=== PATIENT | female | born 1990 | race American Indian/Alaskan Native ===

== ENCOUNTER 2017-10-06 13:53 | Emergency (ER) | payer SELFPAY ==
[2017-10-06 14:31] LABS: Basophils % (Auto) 0.5 % (0.0-1.8); Eosinophils % (Auto) 0.6 % (0.0-4.3); Hematocrit 38.3 % (30.3-42.9); Hemoglobin 12.1 gm/dl (10.1-14.3); Lymphocytes # (Auto) 1.3 K/mm3 (1.2-5.4); Lymphocytes % (Auto) 22.5 % (13.4-35.0); Mean Corpuscular HGB Conc 32 % (30-34); Mean Corpuscular Volume 75 fl (79-97); Monocytes # (Auto) 0.3 K/mm3 (0.0-0.8); Monocytes % (Auto) 5.1 % (0.0-7.3); Platelet Count 233 K/mm3 (140-440); Red Blood Count 5.07 M/mm3 (3.65-5.03)
--- NOTE | 2017-10-06 14:31 | Emergency Department Report ---
Blank Doc - Documentation Documentation: Patient is a 27-year-old female past medical history of pancreatitis was coming with 3 days of upper abdominal pain nausea vomiting. Patient states is consistent with her pancreatitis. Patient is very tender in epigastric region, vomited multiple times here in the emergency departments tachycardic. Patient be moved to the main for further care.
[2017-10-06] MEDS ORDERED: ZOFRAN IV ONE (14:32)
[2017-10-06] MEDS ORDERED: NACL 0.9% 1000 ML 1,000 ML IV ONE (14:32)
[2017-10-06] MEDS ORDERED: MORPHINE IV ONE (14:32)
[2017-10-06] MEDS ORDERED: TORADOL IV ONE (14:32)
[2017-10-06 14:34] LABS: Mean Corpuscular Hemoglobin 24 pg (28-32); Red Cell Distribution Width 22.3 % (13.2-15.2)
[2017-10-06 14:39] LABS: Bacteria,Urine 1+ /HPF (Negative); Bilirubin,Urine NEG (Negative); Blood,Urine NEG (Negative); Color,Urine Yellow (Yellow); Mucus,Urine 1+ /HPF; Urobilinogen,Urine < 2.0 mg/dL (<2.0)
[2017-10-06 14:46] LABS: Alanine Aminotransferase 26 units/L (7-56); Albumin 4.3 g/dL (3.9-5); BUN/Creatinine Ratio 8; Blood Urea Nitrogen 6 mg/dL (7-17); Calcium 9.9 mg/dL (8.4-10.2); Hemolysis Index 0
[2017-10-06 15:58] LABS: HCG Qualitative,Urine Negative (Negative)
[2017-10-06] MEDS ORDERED: SUBLIMAZE IV ONE (16:33)
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
--- NOTE | 2017-10-06 19:08 | Cat Scan Report ---
FINAL REPORT EXAM: CT ABDOMEN PELVIS W CON HISTORY: hx pancreatitis with surg of pseudocyst TECHNIQUE: CT of the abdomen and pelvis was performed after the administration of intravenous contrast. Subsequently, CT of the abdomen and pelvis was performed in the delayed phase. Reconstructions were included in the coronal and sagittal planes. PRIORS: None. FINDINGS: Lower thorax: The lung bases are clear. The visualized portions of the heart are normal. Liver: The liver is normal in attenuation. There is mild intrahepatic biliary ductal dilation. No focal hepatic lesions. Gallbladder/ biliary system: No cholelithiasis. The common bile duct is at the upper limits of normal in size measuring 6 millimeters. Spleen: No splenic lesions are seen. Pancreas: Pancreatic and peripancreatic inflammation is seen. There is mild dilation of the pancreatic duct measuring up to 4 millimeters. A cyst is seen in the region of the pancreatic head measuring 1.3 centimeters. Kidneys: No renal masses, cysts or hydronephrosis. No ureteral filling defects. Adrenal glands: No adrenal masses. 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 Lymph nodes: No enlarged lymph nodes are seen in the abdomen or pelvis. Bowel, mesentery, peritoneum: No bowel obstruction. No free fluid or free air. The appendix is normal. No colonic diverticulosis. No bowel wall thickening. Urinary bladder: No filling defects are seen. Pelvis: Probable calcifying right uterine fibroid is seen. The ovaries appear unremarkable. There is a small amount of free fluid in the pelvis. Abdominal wall: No abdominal wall hernia or other subcutaneous findings. Bones: No acute or chronic osseous finding. IMPRESSION: 1. Findings of pancreatitis. Cystic lesion in the pancreatic head measuring 1.3 centimeters concerning for pseudocyst. 2. Dilation of the pancreatic duct and intrahepatic biliary ducts with borderline caliber common bile duct. Could consider further evaluation with MRCP. 3. 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 4. Probable calcifying right uterine fibroid. 5. Small volume of free fluid in the pelvis.
[2017-10-06] MEDS ORDERED: PERCOCET 5/325 PO ONE (19:30)
[2017-10-06 19:43] VITALS: BP 115/88
== END 2017-10-06 19:45 | disposition home or self-care (01) ==
LOC: ED 13:53
DX: K85.90 Acute pancreatitis without necrosis or infection, unspecified (principal); F17.200 Nicotine dependence, unspecified, uncomplicated
CPT/HCPCS: 36415; 74177; 80053; 81001; 81025; 83690; 85025; 96361; 96374; 96375; 99284; J1885; J2270; J2405; J3010; J7030; Q9967

== ENCOUNTER 2018-02-28 13:21 | Emergency (ER) | payer SELFPAY ==
[2018-02-28] MEDS ORDERED: NACL 0.9% 1000 ML 1,000 ML IV ONE ×2 (14:11→15:56)
[2018-02-28 15:00] LABS: HCG Qualitative,Urine Negative (Negative)
[2018-02-28 15:04] LABS: Hematocrit 35.6 % (30.3-42.9); Hemoglobin 11.5 gm/dl (10.1-14.3); Mean Corpuscular HGB Conc 32 % (30-34); Mean Corpuscular Volume 77 fl (79-97); Platelet Count 301 K/mm3 (140-440); Red Blood Count 4.64 M/mm3 (3.65-5.03)
[2018-02-28 15:06] LABS: Bilirubin,Urine NEG (Negative); Blood,Urine LG (Negative); Color,Urine Amber (Yellow); Mucus,Urine 3+ /HPF
[2018-02-28 15:07] LABS: Mean Corpuscular Hemoglobin 25 pg (28-32)
[2018-02-28 15:08] LABS: RBC,Urine > 182.0 /HPF (0.0-6.0)
[2018-02-28 15:16] LABS: Alanine Aminotransferase 27 units/L (7-56); Albumin 4.6 g/dL (3.9-5); BUN/Creatinine Ratio 9; Blood Urea Nitrogen 7 mg/dL (7-17); Calcium 10.1 mg/dL (8.4-10.2); Hemolysis Index 10; Lipase 229 units/L (13-60)
[2018-02-28 15:52] LABS: Basophils % (Manual) 0 % (0.0-1.8); Eosinophils % (Manual) 0 % (0.0-4.3); Total Cells Counted 100
[2018-02-28 15:53] LABS: Anisocytosis 1+; Hypochromasia 1+; Ovalocytes Few; Platelet Estimate Consistent w Auto
[2018-02-28] MEDS ORDERED: ZOFRAN IV ONE (15:55)
[2018-02-28] MEDS ORDERED: MORPHINE IV ONE (15:55)
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
[2018-02-28 17:46] VITALS: BP 143/94
--- NOTE | 2018-02-28 18:08 | Cat Scan Report ---
FINAL REPORT PROCEDURE: CT abdomen and pelvis with contrast. TECHNIQUE: Computerized axial tomography of the abdomen and pelvis was performed after the IV injection of iodinated nonionic contrast. HISTORY: abdominal pain/history of pancreatic cyst removal COMPARISON: CT abdomen and pelvis 10/06/2017. FINDINGS: The lung bases are clear. There are no pleural effusions. The heart size is normal. The liver and spleen appear normal. The cystic mass in the head of the pancreas has either resolved or been resected. The pancreas appears normal. There may be some very mild infiltration of the fat adjacent to the body and tail of the pancreas. This could indicate pancreatitis. Clinical correlation is recommended. The gallbladder is present. There is no biliary dilatation. The adrenal glands are not enlarged. Both kidneys appear normal in size and configuration. The abdominal aorta has a normal caliber. There is no retroperitoneal adenopathy. The unopacified gastrointestinal tract is unremarkable. A normal appendix is visible. The bladder is unremarkable. There are some coarse calcifications in the uterus suggesting a leiomyoma. The regional skeleton appears intact. IMPRESSION: Resolution or resection of pancreatic head mass. Question mild pancreatitis. Probable large uterine fibroid.
[2018-02-28] MEDS ORDERED: TORADOL IV ONE (18:27)
== END 2018-02-28 19:00 | disposition home or self-care (01) ==
LOC: ED 13:21
DX: K85.90 Acute pancreatitis without necrosis or infection, unspecified (principal); Z86.2 Personal history of diseases of the blood and blood-forming organs and certain disorders involving the immune mechanism; Z98.890 Other specified postprocedural states
CPT/HCPCS: 36415; 74177; 80053; 81001; 81025; 83690; 85007; 85025; 96361; 96374; 96375; 99284; J1885; J2270; J2405; J7030; Q9967

== ENCOUNTER 2018-03-22 00:59 | Inpatient (IN) | payer OTHER ==
[2018-03-22 02:15] LABS: Basophils % (Auto) 0.7 % (0.0-1.8); Eosinophils # (Auto) 0.2 K/mm3 (0.0-0.4); Eosinophils % (Auto) 2.6 % (0.0-4.3); Hematocrit 38.6 % (30.3-42.9); Hemoglobin 12.3 gm/dl (10.1-14.3); Lymphocytes # (Auto) 1.8 K/mm3 (1.2-5.4); Lymphocytes % (Auto) 26.6 % (13.4-35.0); Mean Corpuscular HGB Conc 32 % (30-34); Mean Corpuscular Volume 77 fl (79-97); Monocytes # (Auto) 0.5 K/mm3 (0.0-0.8); Monocytes % (Auto) 7.9 % (0.0-7.3); Platelet Count 252 K/mm3 (140-440); Red Blood Count 4.98 M/mm3 (3.65-5.03)
[2018-03-22 02:24] LABS: Mean Corpuscular Hemoglobin 25 pg (28-32); Red Cell Distribution Width 23.8 % (13.2-15.2)
[2018-03-22 02:39] LABS: Albumin 4.1 g/dL (3.9-5); Calcium 10.1 mg/dL (8.4-10.2)
[2018-03-22] MEDS ORDERED: ZOFRAN ODT ONE (04:33)
[2018-03-22] MEDS ORDERED: ZOFRAN ODT PO ONE (04:40)
[2018-03-22] MEDS ORDERED: MORPHINE IV ONE (07:13)
[2018-03-22] MEDS ORDERED: NACL 0.9% 1000 ML 1,000 ML IV ONE (07:50)
[2018-03-22] MEDS ORDERED: PROTONIX IV ONE ×2 (09:05→09:40)
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
--- NOTE | 2018-03-22 09:32 | History and Physical Report ---
<REHANA BAUGH - Last Filed: 03/22/18 10:15> History of Present Illness Date of examination: 03/22/18 Date of admission: 03/22/18 08:19 Chief complaint: Abdominal pain, nausea and vomiting History of present illness: Pt is a 28 y/o female with PMHx of recurrent pancreatitis, who presents to the ER with c/o abdominal pain,nausea and vomiting for 4 days. Pt states that the pain started 4 days ago, it is a sharp pain that radiates to the mid lower back and sometimes her shoulder, she is unable to tolerate food or drinks due to n/ v. Pt states that she has prior episodes of pancreatitis and the pain is similar to the prior pain she has with pancreatitis. Pt states that she has surgery to remove a cyst in her pancreas 1 year ago, and since then she keeps having flare up. Pt denies heavy alcohol consumption, denies history of hypercholesteronemia, she c/o severe abdominal and back pain associated with n/ v, denies fever, denies chills, denies diaphoretic, denies headache or dizziness. In the ER her lipase was elevated to 297, pt was given antiemetic and analgesic with morphine and admitted for further evaluation and treatment. Past History Past Medical History: other (recurrent pancreatitis) Past Surgical History: Other (pancratic cystectomy) Social history: smoking (use to smoke 1ppd, now she smokes about 10 cigarettes pd) Family history: diabetes, hypertension, other (both mother and father has HTN, DM, maternal grand mother and mother has pancreatitis) Medications and Allergies Allergies Allergy/AdvReac Type Severity Reaction Status Date / Time No Known Allergies Allergy Verified 04/05/15 11:09 Home Medications Medication Instructions Recorded Confirmed Last Taken Type No Known Home Medications [No 03/22/18 03/22/18 Unknown History Reported Home Medications] Review of Systems Constitutional: weight loss, poor appetite Gastrointestinal: abdominal pain, nausea, vomiting, loss of appetite Integumentary: deferred Exam - Constitutional Vitals: Temp Pulse Resp BP Pulse Ox 98.3 F 107 H 16 108/81 98 03/22/18 06:32 03/22/18 08:00 03/22/18 08:09 03/22/18 08:00 03/22/18 07:00 General appearance: Present: no acute distress - EENT Eyes: Present: PERRL, EOM intact - Neck Neck: Present: normal ROM - Respiratory Respiratory effort: normal Respiratory: bilateral: CTA - Cardiovascular Rhythm: regular - Extremities Extremities: No edema - Abdominal General gastrointestinal: Present: tender Localized gastrointestinal: tender: midline Female genitourinary: Present: deferred - Rectal Rectal Exam: deferred - Integumentary Integumentary: Present: clear, warm, dry - Musculoskeletal Musculoskeletal: strength equal bilaterally, left sided weakness - Psychiatric Psychiatric: cooperative - Neurologic Neurologic: other (no focal deficit) Results - Labs CBC & Chem 7: 03/22/18 02:02 03/22/18 02:02 Labs: Laboratory Last Values WBC 6.8 K/mm3 (4.5-11.0) 03/22/18 02:02 RBC 4.98 M/mm3 (3.65-5.03) 03/22/18 02:02 Hgb 12.3 gm/dl (10.1-14.3) 03/22/18 02:02 Hct 38.6 % (30.3-42.9) 03/22/18 02:02 MCV 77 fl (79-97) L 03/22/18 02:02 MCH 25 pg (28-32) L 03/22/18 02:02 MCHC 32 % (30-34) 03/22/18 02:02 RDW 23.8 % (13.2-15.2) H 03/22/18 02:02 Plt Count 252 K/mm3 (140-440) 03/22/18 02:02 Lymph % (Auto) 26.6 % (13.4-35.0) 03/22/18 02:02 [place] % (Auto) 7.9 % (0.0-7.3) H 03/22/18 02:02 Eos % (Auto) 2.6 % (0.0-4.3) 03/22/18 02:02 Baso % (Auto) 0.7 % (0.0-1.8) 03/22/18 02:02 Lymph # 1.8 K/mm3 (1.2-5.4) 03/22/18 02:02 [place] # 0.5 K/mm3 (0.0-0.8) 03/22/18 02:02 Eos # 0.2 K/mm3 (0.0-0.4) 03/22/18 02:02 Baso # 0.0 K/mm3 (0.0-0.1) 03/22/18 02:02 Seg Neutrophils % 62.2 % (40.0-70.0) 03/22/18 02:02 Seg Neutrophils # 4.2 K/mm3 (1.8-7.7) 03/22/18 02:02 Sodium 130 mmol/L (137-145) L 03/22/18 02:02 Potassium 4.3 mmol/L (3.6-5.0) 03/22/18 02:02 Chloride 89.5 mmol/L (98-107) L 03/22/18 02:02 Carbon Dioxide 21 mmol/L (22-30) L 03/22/18 02:02 Anion Gap 24 mmol/L 03/22/18 02:02 BUN 14 mg/dL (7-17) 03/22/18 02:02 Creatinine 1.5 mg/dL (0.7-1.2) H 03/22/18 02:02 Estimated GFR 49 ml/min 03/22/18 02:02 BUN/Creatinine Ratio 9 % 03/22/18 02:02 Glucose 84 mg/dL (65-100) 03/22/18 02:02 Calcium 10.1 mg/dL (8.4-10.2) 03/22/18 02:02 Total Bilirubin 0.30 mg/dL (0.1-1.2) 03/22/18 02:02 AST 15 units/L (5-40) 03/22/18 02:02 ALT 8 units/L (7-56) 03/22/18 02:02 Alkaline Phosphatase 79 units/L (35-129) 03/22/18 02:02 Troponin T < 0.010 ng/mL (0.00-0.029) 03/22/18 07:48 Total Protein 8.3 g/dL (6.3-8.2) H 03/22/18 02:02 Albumin 4.1 g/dL (3.9-5) 03/22/18 02:02 Albumin/Globulin Ratio 1.0 % 03/22/18 02:02 Lipase 297 units/L (13-60) H 03/22/18 02:02 HCG, Qual Negative (Negative) 03/22/18 02:02 Assessment and Plan Assessment and plan: Acute pancreatitis Admit to [facility] keep NPO IVF for hydration Pain management with morphine Antiemetic with Zofran PRN Abdominal pain (due to above) Pain management with morphine Bowel rest (NPO) Hyponatremia replace Sodium with NS Repeat NA in am Dehydration Keep pt hydrated with fluid replacement YOSSI (likely due to dehydration) Continue IVF for renal perfusion F/u bun/creat in am Nausea/vomiting Antiemetic with Zofran PRN H/o blood clot in the abdomen DVT prophylaxis with lovenox GI prophylaxis with Pepcid DC Plan when able to tolerate PO <RAF STEPHENSON - Last Filed: 03/22/18 23:27> History of Present Illness Date of admission: 03/22/18 08:19 Medications and Allergies Active Meds: Active Medications Enoxaparin Sodium (Lovenox) 30 mg SUB-Q BID [facility] Last Admin: 03/22/18 22:58 Dose: Not Given Famotidine (Pepcid) 20 mg IV QDAY [facility] Last Admin: 03/22/18 12:26 Dose: 20 mg Sodium Chloride (Nacl 0.9% 1000 Ml) 1,000 mls @ 125 mls/hr IV DIRECT [facility] Last Admin: 03/22/18 22:56 Dose: 125 mls/hr Morphine Sulfate (Morphine) 4 mg IV Q4H PRN PRN Reason: Pain, Moderate (4-6) Last Admin: 03/22/18 22:54 Dose: 4 mg Nicotine (Habitrol) 14 mg TD QDAY [facility] Last Admin: 03/22/18 19:42 Dose: 14 mg Ondansetron HCl (Zofran) 4 mg IV Q8H PRN PRN Reason: Nausea And Vomiting Last Admin: 03/22/18 12:26 Dose: 4 mg Exam - Constitutional Vitals: Temp Pulse Resp BP Pulse Ox 98.6 F 94 H 20 136/97 98 03/22/18 17:44 03/22/18 17:44 03/22/18 22:54 03/22/18 17:44 03/22/18 17:44 Results - Labs CBC & Chem 7: 03/22/18 02:02 03/22/18 02:02 Labs: Laboratory Last Values WBC 6.8 K/mm3 (4.5-11.0) 03/22/18 02:02 RBC 4.98 M/mm3 (3.65-5.03) 03/22/18 02:02 Hgb 12.3 gm/dl (10.1-14.3) 03/22/18 02:02 Hct 38.6 % (30.3-42.9) 03/22/18 02:02 MCV 77 fl (79-97) L 03/22/18 02:02 MCH 25 pg (28-32) L 03/22/18 02:02 MCHC 32 % (30-34) 03/22/18 02:02 RDW 23.8 % (13.2-15.2) H 03/22/18 02:02 Plt Count 252 K/mm3 (140-440) 03/22/18 02:02 Lymph % (Auto) 26.6 % (13.4-35.0) 03/22/18 02:02 [place] % (Auto) 7.9 % (0.0-7.3) H 03/22/18 02:02 Eos % (Auto) 2.6 % (0.0-4.3) 03/22/18 02:02 Baso % (Auto) 0.7 % (0.0-1.8) 03/22/18 02:02 Lymph # 1.8 K/mm3 (1.2-5.4) 03/22/18 02:02 [place] # 0.5 K/mm3 (0.0-0.8) 03/22/18 02:02 Eos # 0.2 K/mm3 (0.0-0.4) 03/22/18 02:02 Baso # 0.0 K/mm3 (0.0-0.1) 03/22/18 02:02 Seg Neutrophils % 62.2 % (40.0-70.0) 03/22/18 02:02 Seg Neutrophils # 4.2 K/mm3 (1.8-7.7) 03/22/18 02:02 Sodium 130 mmol/L (137-145) L 03/22/18 02:02 Potassium 4.3 mmol/L (3.6-5.0) 03/22/18 02:02 Chloride 89.5 mmol/L (98-107) L 03/22/18 02:02 Carbon Dioxide 21 mmol/L (22-30) L 03/22/18 02:02 Anion Gap 24 mmol/L 03/22/18 02:02 BUN 14 mg/dL (7-17) 03/22/18 02:02 Creatinine 1.5 mg/dL (0.7-1.2) H 03/22/18 02:02 Estimated GFR 49 ml/min 03/22/18 02:02 BUN/Creatinine Ratio 9 % 03/22/18 02:02 Glucose 84 mg/dL (65-100) 03/22/18 02:02 Calcium 10.1 mg/dL (8.4-10.2) 03/22/18 02:02 Total Bilirubin 0.30 mg/dL (0.1-1.2) 03/22/18 02:02 AST 15 units/L (5-40) 03/22/18 02:02 ALT 8 units/L (7-56) 03/22/18 02:02 Alkaline Phosphatase 79 units/L (35-129) 03/22/18 02:02 Troponin T < 0.010 ng/mL (0.00-0.029) 03/22/18 07:48 Total Protein 8.3 g/dL (6.3-8.2) H 03/22/18 02:02 Albumin 4.1 g/dL (3.9-5) 03/22/18 02:02 Albumin/Globulin Ratio 1.0 % 03/22/18 02:02 Lipase 297 units/L (13-60) H 03/22/18 02:02 HCG, Qual Negative (Negative) 03/22/18 02:02 Urine Color Straw (Yellow) 03/22/18 09:36 Urine Turbidity Hazy (Clear) 03/22/18 09:36 Urine pH 5.0 (5.0-7.0) 03/22/18 09:36 Ur Specific [place] 1.010 (1.003-1.030) 03/22/18 09:36 Urine Protein 30 mg/dl mg/dL (Negative) 03/22/18 09:36 Urine Glucose (UA) Negative mg/dL (Negative) 03/22/18 09:36 Urine Ketones 25 mg/dL (Negative) 03/22/18 09:36 Urine Blood Negative (Negative) 03/22/18 09:36 Urine Nitrite Negative (Negative) 03/22/18 09:36 Ur Reducing Substances Not Reportable 03/22/18 09:36 Urine Bilirubin Negative (Negative) 03/22/18 09:36 Urine Ictotest Not Reportable 03/22/18 09:36 Urine Urobilinogen 0.0 mg/dL (<2.0) 03/22/18 09:36 Ur Leukocyte Esterase Trace (Negative) 03/22/18 09:36 Urine WBC (Auto) 35.0 /HPF (0.0-6.0) H 03/22/18 09:36 Urine RBC (Auto) 3.0 /HPF (0.0-6.0) 03/22/18 09:36 U Epithel Cells (Auto) 8.0 /HPF (0-13.0) 03/22/18 09:36 Urine Bacteria (Auto) 1+ /HPF (Negative) 03/22/18 09:36 Granular Casts 3 /LPF 03/22/18 09:36 Urine Mucus Few /HPF 03/22/18 09:36 Urine Yeast (Budding) Few /HPF 03/22/18 09:36 Assessment and Plan Plan of care discussed with patient/family: Yes Assessment and Plan Discussed history and physical examination and management 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 Agreed with management plan.
[2018-03-22] MEDS ORDERED: NACL 0.9% 1000 ML 1,000 ML ONE (09:40)
--- NOTE | 2018-03-22 10:00 | Cat Scan Report ---
CT ABDOMEN PELVIS WITH CONTRAST: HISTORY: Abdominal pain, pancreatitis. COMPARISON: 02/28/18. TECHNIQUE: Helical CT in 1.25mm intervals following IV contrast. Sagittal and coronal reconstructions. FINDINGS: Lung bases: Normal. Liver: The liver is normal size, contour and attenuation. No parenchymal disease or mass is identified. The main portal vein appears to be occluded with cavernous transformation in the mino hepatis which is unchanged since the previous exam. Biliary system: Within normal limits. Pancreas: Mild edema and surrounding fluid is identified suggestive of acute pancreatitis. No obvious pancreatic mass or pseudocyst. There is minimal dilatation of the pancreatic duct in the tail of the pancreas. Spleen: Normal. Kidneys/ureters/bladder: Normal. Adrenal glands: Normal. Aorta: Normal. Intestines: Within normal limits given no oral contrast was administered. Appendix: Normal. Pelvic viscera: A 4.1 cm partially calcified submucosal fibroid is identified in the right lateral wall of the uterus which is unchanged. A large right adnexal cyst has developed measuring 5.6 x 3.7 cm which is a new finding. The left adnexa is unremarkable. Ascites: Small pelvic ascites. Adenopathy: None. Musculoskeletal: Normal. IMPRESSION: Findings consistent with acute pancreatitis. No evidence for calcified gallstones on CT. 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 Calcified uterine fibroid. Large right ovarian cyst, new. Small pelvic ascites.
[2018-03-22] MEDS ORDERED: MORPHINE IV PRN ×2 (10:03→10:09)
[2018-03-22] MEDS: MORPHINE IV PRN ×4 (10:47→22:54)
[2018-03-22] MEDS ORDERED: LEVAQUIN 500MG/100ML 500 MG/100 ML BAG IV SCH (11:00)
[2018-03-22 12:01] LABS: Bacteria,Urine 1+ /HPF (Negative); Granular Casts,Urine 3 /LPF; Mucus,Urine FEW /HPF
[2018-03-22 12:09] LABS: Color,Urine Straw (Yellow)
[2018-03-22 12:10] LABS: Bilirubin,Urine Negative (Negative); Blood,Urine Negative (Negative)
[2018-03-22] MEDS: NACL 0.9% 1000 ML 1,000 ML IV SCH ×2 (12:26→22:56)
[2018-03-22] MEDS: PEPCID IV SCH (12:26)
[2018-03-22] MEDS: ZOFRAN IV PRN (12:26)
[2018-03-22] MEDS: LOVENOX SUB-Q SCH ×2 (12:27→22:58)
[2018-03-22] MEDS: HABITROL TD SCH (19:42)
[2018-03-23] MEDS: ZOFRAN IV PRN (01:55)
[2018-03-23] MEDS: MORPHINE IV PRN ×6 (03:47→21:48)
--- NOTE | 2018-03-23 08:40 | Progress Note ---
Assessment and Plan Assessment and plan: Acute pancreatitis Admit to [facility] Advance diet as tolerated IVF for hydration Increase morphine freqency to q3hr Antiemetic with Zofran PRN Abdominal pain (due to above) Pain management with morphine Increase diet as tolerated Hyponatremia replace Sodium with NS Repeat NA in am Dehydration Keep pt hydrated with fluid replacement YOSSI (likely due to dehydration) Continue IVF for renal perfusion F/u bun/creat in am Nausea/vomiting Antiemetic with Zofran PRN H/o blood clot in the abdomen DVT prophylaxis with lovenox GI prophylaxis with Pepcid DC Plan in 1-2 days History Interval history: Pt is Awake in bed, c/o abdominal pain, states that the pain medication is wearing-off quickly, and her pain increase before she can receive the next dose. She denies nausea and vomiting. Hospitalist Physical - Constitutional Vitals: Temp Pulse Resp BP Pulse Ox 98.2 F 102 H 20 129/98 100 03/23/18 06:31 03/23/18 06:31 03/23/18 07:42 03/23/18 06:31 03/23/18 06:31 General appearance: Present: no acute distress - EENT Eyes: Present: EOM intact ENT: clear oral mucosa - Neck Neck: Present: normal ROM - Respiratory Respiratory effort: normal - Cardiovascular Rhythm: regular - Extremities Extremities: No edema - Abdominal General gastrointestinal: tender (Mid-abdominal area) - Integumentary Integumentary: Present: warm, dry - Psychiatric Psychiatric: cooperative - Neurologic Neurologic: moves all extremities - Allied Health Allied health notes reviewed: nursing Results - Labs CBC & Chem 7: 03/22/18 02:02 03/22/18 02:02 Labs: Laboratory Last Values WBC 6.8 K/mm3 (4.5-11.0) 03/22/18 02:02 RBC 4.98 M/mm3 (3.65-5.03) 03/22/18 02:02 Hgb 12.3 gm/dl (10.1-14.3) 03/22/18 02:02 Hct 38.6 % (30.3-42.9) 03/22/18 02:02 MCV 77 fl (79-97) L 03/22/18 02:02 MCH 25 pg (28-32) L 03/22/18 02:02 MCHC 32 % (30-34) 03/22/18 02:02 RDW 23.8 % (13.2-15.2) H 03/22/18 02:02 Plt Count 252 K/mm3 (140-440) 03/22/18 02:02 Lymph % (Auto) 26.6 % (13.4-35.0) 03/22/18 02:02 [place] % (Auto) 7.9 % (0.0-7.3) H 03/22/18 02:02 Eos % (Auto) 2.6 % (0.0-4.3) 03/22/18 02:02 Baso % (Auto) 0.7 % (0.0-1.8) 03/22/18 02:02 Lymph # 1.8 K/mm3 (1.2-5.4) 03/22/18 02:02 [place] # 0.5 K/mm3 (0.0-0.8) 03/22/18 02:02 Eos # 0.2 K/mm3 (0.0-0.4) 03/22/18 02:02 Baso # 0.0 K/mm3 (0.0-0.1) 03/22/18 02:02 Seg Neutrophils % 62.2 % (40.0-70.0) 03/22/18 02:02 Seg Neutrophils # 4.2 K/mm3 (1.8-7.7) 03/22/18 02:02 Sodium 130 mmol/L (137-145) L 03/22/18 02:02 Potassium 4.3 mmol/L (3.6-5.0) 03/22/18 02:02 Chloride 89.5 mmol/L (98-107) L 03/22/18 02:02 Carbon Dioxide 21 mmol/L (22-30) L 03/22/18 02:02 Anion Gap 24 mmol/L 03/22/18 02:02 BUN 14 mg/dL (7-17) 03/22/18 02:02 Creatinine 1.5 mg/dL (0.7-1.2) H 03/22/18 02:02 Estimated GFR 49 ml/min 03/22/18 02:02 BUN/Creatinine Ratio 9 % 03/22/18 02:02 Glucose 84 mg/dL (65-100) 03/22/18 02:02 Calcium 10.1 mg/dL (8.4-10.2) 03/22/18 02:02 Total Bilirubin 0.30 mg/dL (0.1-1.2) 03/22/18 02:02 AST 15 units/L (5-40) 03/22/18 02:02 ALT 8 units/L (7-56) 03/22/18 02:02 Alkaline Phosphatase 79 units/L (35-129) 03/22/18 02:02 Troponin T < 0.010 ng/mL (0.00-0.029) 03/22/18 07:48 Total Protein 8.3 g/dL (6.3-8.2) H 03/22/18 02:02 Albumin 4.1 g/dL (3.9-5) 03/22/18 02:02 Albumin/Globulin Ratio 1.0 % 03/22/18 02:02 Lipase 297 units/L (13-60) H 03/22/18 02:02 HCG, Qual Negative (Negative) 03/22/18 02:02 Urine Color Straw (Yellow) 03/22/18 09:36 Urine Turbidity Hazy (Clear) 03/22/18 09:36 Urine pH 5.0 (5.0-7.0) 03/22/18 09:36 Ur Specific [place] 1.010 (1.003-1.030) 03/22/18 09:36 Urine Protein 30 mg/dl mg/dL (Negative) 03/22/18 09:36 Urine Glucose (UA) Negative mg/dL (Negative) 03/22/18 09:36 Urine Ketones 25 mg/dL (Negative) 03/22/18 09:36 Urine Blood Negative (Negative) 03/22/18 09:36 Urine Nitrite Negative (Negative) 03/22/18 09:36 Ur Reducing Substances Not Reportable 03/22/18 09:36 Urine Bilirubin Negative (Negative) 03/22/18 09:36 Urine Ictotest Not Reportable 03/22/18 09:36 Urine Urobilinogen 0.0 mg/dL (<2.0) 03/22/18 09:36 Ur Leukocyte Esterase Trace (Negative) 03/22/18 09:36 Urine WBC (Auto) 35.0 /HPF (0.0-6.0) H 03/22/18 09:36 Urine RBC (Auto) 3.0 /HPF (0.0-6.0) 03/22/18 09:36 U Epithel Cells (Auto) 8.0 /HPF (0-13.0) 03/22/18 09:36 Urine Bacteria (Auto) 1+ /HPF (Negative) 03/22/18 09:36 Granular Casts 3 /LPF 03/22/18 09:36 Urine Mucus Few /HPF 03/22/18 09:36 Urine Yeast (Budding) Few /HPF 03/22/18 09:36
[2018-03-23] MEDS: NACL 0.9% 1000 ML 1,000 ML IV SCH ×2 (09:58→22:18)
[2018-03-23] MEDS: LOVENOX SUB-Q SCH ×3 (09:59→21:48)
[2018-03-23] MEDS: PEPCID IV SCH (09:59)
[2018-03-23] MEDS: HABITROL TD SCH (10:00)
--- NOTE | 2018-03-23 12:14 | XRay Report ---
ROUTINE CHEST, TWO VIEWS: HISTORY: Abnormal breathing. The trachea, heart, mediastinal contour, lung robin and bony thorax are unremarkable. IMPRESSION: Unremarkable chest x-ray.
[2018-03-23 17:05] LABS: Bacteria,Urine 1+ /HPF (Negative); Bilirubin,Urine NEG (Negative); Blood,Urine NEG (Negative); Mucus,Urine 3+ /HPF
[2018-03-23 17:06] LABS: Color,Urine Yellow (Yellow)
[2018-03-24] MEDS: MORPHINE IV PRN ×5 (00:38→13:16)
[2018-03-24 05:41] LABS: Basophils % (Auto) 0.9 % (0.0-1.8); Eosinophils # (Auto) 0.1 K/mm3 (0.0-0.4); Eosinophils % (Auto) 1.9 % (0.0-4.3); Hematocrit 30.5 % (30.3-42.9); Hemoglobin 9.6 gm/dl (10.1-14.3); Lymphocytes % (Auto) 33.9 % (13.4-35.0); Mean Corpuscular HGB Conc 32 % (30-34); Mean Corpuscular Volume 78 fl (79-97); Monocytes # (Auto) 0.3 K/mm3 (0.0-0.8); Monocytes % (Auto) 8.3 % (0.0-7.3); Platelet Count 141 K/mm3 (140-440); Red Blood Count 3.91 M/mm3 (3.65-5.03)
[2018-03-24 05:55] LABS: BUN/Creatinine Ratio 10; Blood Urea Nitrogen 4 mg/dL (7-17); Calcium 8.8 mg/dL (8.4-10.2); Hemolysis Index 0
[2018-03-24 05:56] LABS: Mean Corpuscular Hemoglobin 25 pg (28-32); Red Cell Distribution Width 24.1 % (13.2-15.2)
[2018-03-24 06:48] VITALS: BP 124/93
[2018-03-24] MEDS: HABITROL TD SCH (10:23)
[2018-03-24] MEDS: LOVENOX SUB-Q SCH (10:24)
[2018-03-24] MEDS: PEPCID IV SCH (10:24)
--- NOTE | 2018-03-24 11:08 | Discharge Summary ---
Providers - Providers Date of Admission: 03/22/18 08:19 Attending physician: VASILIY HARRY MD Primary care physician: [employer]IN[employer] COLLECTOR Hospitalization Condition: Stable Hospital course: discussed pain managment. ETOH and tobacco CESSATION. lAST DRINK A MONTH AGO NOW TOLERATING FULL LIQUID. LEAVES THE FLOOR Disccused need for outpatient follow up. REferrals given Disposition: DC-01 TO HOME OR SELFCARE Time spent for discharge: 35 mins Exam - Constitutional Vitals: Temp Pulse Resp BP Pulse Ox 98.6 F 89 18 124/93 100 03/24/18 06:23 03/24/18 06:23 03/24/18 06:23 03/24/18 06:23 03/24/18 06:23 Plan Activity: advance as tolerated, fall precautions Diet: other (full liquid x 5 days then advance as tolerated) Special Instructions: smoking cessation Follow up with: [facility] [Provider Group] - 7 Days PRIMARY CARE, [Primary Care Provider] - 3-5 Days TESSA HARDING MD [Staff Physician] - 7 Days Forms: Work/School Release Form Prescriptions: oxyCODONE /ACETAMINOPHEN [Percocet 5/325] 1 tab PO Q6HR PRN #14 tablet PRN Reason: Pain Sennosides [Senna] 8.6 mg PO Q6H PRN #30 tablet PRN Reason: Constipation
[2018-03-24] MEDS ORDERED: K-DUR PO ONE (11:48)
[2018-03-24] MEDS ORDERED: KCL 10MEQ/100ML 10 MEQ/100 ML BAG IV SCH (13:00)
[2018-03-25] MEDS ORDERED: LOVENOX SUB-Q SCH ×2 (10:00)
== END 2018-03-24 15:40 | disposition home or self-care (01) | DRG 682 ==
LOC: ED 00:59 → 3A 08:19
PROVIDERS: ADMIT Internal Medicine; ATTEND Internal Medicine
DX: N17.9 Acute kidney failure, unspecified (principal); K85.90 Acute pancreatitis without necrosis or infection, unspecified; E87.1 Hypo-osmolality and hyponatremia; E86.0 Dehydration; F10.10 Alcohol abuse, uncomplicated; F17.210 Nicotine dependence, cigarettes, uncomplicated; Z71.6 Tobacco abuse counseling; Z71.41 Alcohol abuse counseling and surveillance of alcoholic; Z82.49 Family history of ischemic heart disease and other diseases of the circulatory system; Z83.3 Family history of diabetes mellitus; Z79.899 Other long term (current) drug therapy
CPT/HCPCS: 36415; 71046; 74177; 80048; 80053; 81001; 83690; 84484; 84703; 85025; 93005; 93010; C9113; J1650; J2270; J2405; J3480; J7030; Q0162; Q9967

== ENCOUNTER 2018-05-01 06:59 | Emergency (ER) | payer SELFPAY ==
[2018-05-01 08:03] LABS: Basophils % (Auto) 0.3 % (0.0-1.8); Eosinophils % (Auto) 0.6 % (0.0-4.3); Hematocrit 32.7 % (30.3-42.9); Hemoglobin 10.6 gm/dl (10.1-14.3); Lymphocytes # (Auto) 1.4 K/mm3 (1.2-5.4); Lymphocytes % (Auto) 22.4 % (13.4-35.0); Mean Corpuscular HGB Conc 32 % (30-34); Mean Corpuscular Volume 76 fl (79-97); Monocytes # (Auto) 0.3 K/mm3 (0.0-0.8); Platelet Count 325 K/mm3 (140-440); Red Blood Count 4.28 M/mm3 (3.65-5.03)
[2018-05-01 08:38] LABS: Mean Corpuscular Hemoglobin 25 pg (28-32); Red Cell Distribution Width 24.8 % (13.2-15.2)
[2018-05-01 08:47] LABS: Lipase 128 units/L (13-60)
[2018-05-01 09:30] LABS: BUN/Creatinine Ratio 11; Blood Urea Nitrogen 8 mg/dL (7-17); Calcium 9.7 mg/dL (8.4-10.2); Hemolysis Index 0
[2018-05-01 09:45] LABS: Bilirubin,Urine NEG (Negative); Blood,Urine MOD (Negative); Color,Urine Amber (Yellow); Mucus,Urine 3+ /HPF
[2018-05-01 09:47] LABS: HCG Qualitative,Urine Negative (Negative)
--- NOTE | 2018-05-01 10:47 | XRay Report ---
FINAL REPORT EXAM: XR CHEST ROUTINE 2V HISTORY: Shortness of breath COMPARISON: None. TECHNIQUE: Frontal and lateral views of the chest. FINDINGS: The cardiomediastinal silhouette is normal in appearance. The lungs are clear without focal consolidation. There is no pleural effusion or pneumothorax. There is no acute soft tissue or osseous abnormality. IMPRESSION: No acute cardiopulmonary disease.
[2018-05-01] MEDS ORDERED: SUBLIMAZE IV ONE (11:01)
[2018-05-01] MEDS ORDERED: NACL 0.9% 1000 ML 1,000 ML IV ONE (11:01)
[2018-05-01] MEDS ORDERED: ZOFRAN IV ONE (11:01)
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
[2018-05-01 13:26] VITALS: BP 141/102
--- NOTE | 2018-05-01 15:20 | Cat Scan Report ---
FINAL REPORT EXAM: CT ABDOMEN PELVIS W CON HISTORY: abdominal pain COMPARISON: CT of the abdomen and pelvis performed on 02/28/2018 TECHNIQUE: Multiple contiguous axial images were obtained from the lung bases to the pubic symphysis after administration of IV contrast. Reformatted sagittal and coronal images were available for review. FINDINGS: Lung bases: Normal. Visualized heart and mediastinum: Normal. Liver: Normal. Spleen: Normal. Pancreas: Diffuse edema of the pancreas. No evidence for pancreatic necrosis. Thick-walled cystic structure within the body of the pancreas measuring approximately 1.9 x 1.9 centimeters (series 2, image 47). Gallbladder and Biliary Tree: There is mild gallbladder wall thickening versus contraction. There is no biliary ductal dilatation. Adrenal glands: Normal. Kidneys: Symmetric enhancement to both kidneys. No hydronephrosis. Bladder: Decompressed Pelvic organs: Again seen is an enlarged uterus with 3.4 x 4.4 centimeter calcified granuloma. Bowel: No focal wall thickening. Normal appendix without surrounding inflammatory change dot Peritoneum: Mid mesenteric stranding and free fluid. No free air. Vasculature: Abdominal aorta is normal in caliber without evidence of aneurysm. Normal inferior vena cava. Multiple small collateral vessels in the mino hepatis adjacent to the main portal vein. Bones and soft tissues: No suspicious osseous lesions.No acute fracture or dislocation. 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 No evidence for pancreatic necrosis. Recommend clinical correlation. 1.9 x 1.9 centimeter thick-walled cystic structure within the body of the pancreas. Differential diagnosis includes developing pseudocyst or cystic mucinous neoplasm. Multiple collateral vessels within the mino hepatis, around the stomach, and at the gastroesophageal junction. Findings may represent varices and sequela from portal venous hypertension. Alternatively collateral vessels can be seen in the setting of prior portal vein thrombosis.
[2018-05-01] MEDS ORDERED: NORCO 5/325 ONE (15:28)
[2018-05-01] MEDS ORDERED: NORCO 5/325 PO ONE (17:30)
== END 2018-05-01 16:04 | disposition admitted as inpatient to this hospital (09) ==
LOC: ED 06:59
DX: K85.90 Acute pancreatitis without necrosis or infection, unspecified (principal); F10.10 Alcohol abuse, uncomplicated; F17.200 Nicotine dependence, unspecified, uncomplicated; D64.9 Anemia, unspecified
CPT/HCPCS: 36415; 71046; 74177; 80048; 81001; 81025; 83690; 84484; 85025; 93005; 93010; 96361; 96374; 96375; 99284; J2405; J3010; J7030; Q9967